=== PATIENT | female | born 1970 | race Caucasian/White ===

== ENCOUNTER 2025-06-03 16:22 | Emergency (ER) | payer MEDICAID ==
[~2025-06-03] VITALS: Ht 157.5 cm; Wt 63.5 kg
[2025-06-03 16:29] VITALS: BP 135/79
[2025-06-03] MEDS ORDERED: IBUPROFEN 200 MG TABLET ONE (17:19)
[2025-06-03] MEDS ORDERED: ACETAMINOPHEN 500 MG TABLET ONE (17:19)
[2025-06-03] MEDS: IBUPROFEN 200 MG TABLET PO ONE (17:22)
[2025-06-03] MEDS: ACETAMINOPHEN 500 MG TABLET PO ONE (17:23)
[2025-06-03 18:28] VITALS: BP 135/79; TEMP 98.5; O2SAT 97
== END 2025-06-03 18:29 | disposition home or self-care (01) ==
LOC: ER 16:37
DX: S20.211A Contusion of right front wall of thorax, initial encounter (principal); I11.9 Hypertensive heart disease without heart failure; E78.5 Hyperlipidemia, unspecified; J44.9 Chronic obstructive pulmonary disease, unspecified; K21.9 Gastro-esophageal reflux disease without esophagitis; W19.XXXA Unspecified fall, initial encounter; Y93.89 Activity, other specified; Y92.89 Other specified places as the place of occurrence of the external cause; Y99.9 Unspecified external cause status
CPT/HCPCS: 71101; A4606; A4663; A9150